=== PATIENT | male | born 1945 | race Caucasian/White ===

== ENCOUNTER 2016-04-28 12:42 | Emergency (ER) | payer MEDICARE, OTHER ==
[~2016-04-28 12:42] MED LIST: ACETAMINOPHEN325 MG PO; COLACE100 MG PO; COREG 3.125M3.125 MG PO; DUONEB 2.5-0.5M1 AMP INH; FUROSEMIDE20 MG PO; FUROSEMIDE40 MG PO; LEVEMIR FL100 UNIT/1 SQ; MELATONIN10 M1 PO; MELOXICAM15 MG PO; MICRONASE5 MG PO; NEXIUM40 MG PO; PHENERGAN6.25 MG/5 PO; PREDNISONE5 M1 PO; RESTORIL30 MG PO; SINGULAIR10 MG PO; TRAMADOL HCL50 MG PO; VIBRAMYCIN100 MG PO; XARELTO15 MG PO; ZESTRIL5 MG PO
[2016-04-28 13:12] LABS: BASOPHIL 0.2 % (0-2); EOSINOPHIL 0.1 % (0-7); HCT 39.9 % (42.0-52.0); HGB 13.7 g/dl (13.2-18.0); LYMPHOCYTE 5.1 % (15-48); MCH 30.6 pg (25.0-31.0); MCHC 34.3 g/dL (32.0-36.0); MCV 89.1 fL (78.0-100.0); MONOCYTE 10.2 % (0-12); MPV 11.6 fL (6.0-9.5); NEUTROPHIL 84.4 % (41-80); PLT 187 K/uL (150-400); RBC 4.48 M/uL (4.70-6.00); RDW 15.1 % (11.5-14.0); WBC 17.8 K/uL (4.0-10.5)
[2016-04-28 13:23] LABS: INR 1.54 (0.9-1.2)
[2016-04-28 13:25] LABS: D-DIMER 2.03 ug/mLFEU (0.00-0.41)
[2016-04-28 13:33] LABS: ALBUMIN 3.7 g/dL (3.4-4.8); BILIRUBIN - TOTAL 2.2 mg/dL (0.1-1.0); CREATININE 1.4 mg/dL (0.7-1.2); GLOBULIN (CALCULATION) 3.8 g/dL (2.2-4.2); POTASSIUM 4.9 mmol/L (3.5-5.1); TOTAL PROTEIN 7.5 g/dL (6.4-8.3)
== END 2016-04-28 16:22 | disposition home or self-care (01) ==
LOC: FER 12:42
PROVIDERS: Emergency Medicine
DX: J18.1 Lobar pneumonia, unspecified organism (principal); J90 Pleural effusion, not elsewhere classified; I25.810 Atherosclerosis of coronary artery bypass graft(s) without angina pectoris; E11.9 Type 2 diabetes mellitus without complications; Z87.891 Personal history of nicotine dependence; Z91.041 Radiographic dye allergy status; Z95.1 Presence of aortocoronary bypass graft
CPT/HCPCS: 36415; 71020; 80053; 84484; 85025; 85379; 85610; 86403; 87040; 87077; 93005; J1956